=== PATIENT | female | born 1965 | race Caucasian/White ===

== ENCOUNTER 2018-06-13 10:55 | Emergency (ER) | payer BC, OTHER ==
[~2018-06-13] VITALS: Ht 152.4 cm; Wt 52.7 kg
[~2018-06-13 10:55] MED LIST: IBUP600T26 OR; LIAL1.2T PO; VICO5TAB PO; VICT18IN SC; aspirin PO; cardizem PO; lipitor PO; lisinopril PO; loperamide PO; metformin PO; trilipix PO
[2018-06-13] MEDS ORDERED: COZA100T2 PO (11:08)
[2018-06-13] MEDS ORDERED: FENO160T10 PO (11:08)
[2018-06-13] MEDS ORDERED: INVO300T PO (11:08)
[2018-06-13] MEDS ORDERED: VITA1CAP25 PO (11:08)
[2018-06-13] MEDS ORDERED: TRUL0.5I SC (11:08)
--- NOTE | 2018-06-13 13:25 | REP ---
Limited pelvic ultrasound including transabdominal and endovaginal imaging: The patient report as a tender to 3 mm nodule along the right posterior vaginal cuff on pelvic exam. The vaginal vault is evaluated with transabdominal and transvaginal ultrasound. By ultrasound. No nodule or mass is identified. Electronically Signed by Curt Rosas MD 06/13/2018 01:16 P
[2018-06-13 13:54] VITALS: BP 117/77
== END 2018-06-13 13:55 | disposition home or self-care (01) ==
LOC: M ED 10:55
DX: N89.8 Other specified noninflammatory disorders of vagina (principal); R10.2 Pelvic and perineal pain; E11.9 Type 2 diabetes mellitus without complications; I10 Essential (primary) hypertension; E78.5 Hyperlipidemia, unspecified; Z79.82 Long term (current) use of aspirin; Z79.899 Other long term (current) drug therapy; Z98.890 Other specified postprocedural states; Z87.59 Personal history of other complications of pregnancy, childbirth and the puerperium; Z88.0 Allergy status to penicillin; Z88.2 Allergy status to sulfonamides

== ENCOUNTER 2018-08-13 07:30 | Outpatient (CLI) | payer BC ==
[~2018-08-13] VITALS: Ht 152.4 cm; Wt 50.8 kg
[~2018-08-13 07:30] MED LIST changes: +ASPI81TA85 PO; +CARD120T4 PO; +COZA100T2 PO; +FENO160T10 PO; +INVO300T PO; +LIPI20TA PO; +LR 1,000 ML IV ONE; +TRUL0.5I SC; +VITA1CAP25 PO
[2018-08-13 07:44] LABS: HEMATOCRIT 48.7 % (36.0-47.0); HEMOGLOBIN 16.2 g/dl (12.0-15.5); MEAN CORPUSCULAR HEMOGLOBIN 30.3 pg (27.0-33.0); MEAN CORPUSCULAR HGB CONC 33.3 g/dl (32.0-36.5); PLATELET COUNT, AUTOMATED 300 10^3/uL (150-450); RED BLOOD COUNT 5.35 10^6/uL (4.00-5.40); WHITE BLOOD COUNT 6.5 10^3/uL (4.0-10.0)
[2018-08-13 08:06] LABS: BLOOD UREA NITROGEN 23 MG/DL (7-18); CALCIUM LEVEL 8.8 MG/DL (8.5-10.1); CARBON DIOXIDE LEVEL 30 MEQ/L (21-32); CHLORIDE LEVEL 105 MEQ/L (98-107); CREATININE FOR GFR 0.78 MG/DL (0.55-1.30); GLOMERULAR FILTRATION RATE > 60.0 (>51); GLUCOSE, FASTING 128 MG/DL (70-100); POTASSIUM SERUM 4.3 MEQ/L (3.5-5.1); SODIUM LEVEL 141 MEQ/L (136-145)
[2018-08-13] MEDS ORDERED: IBUP-1114 PO (08:26)
[2018-08-13] MEDS ORDERED: LIDOCAINE 2% INJ 100 MG/5 ML SDV (FOR ANES.) As Ordered ONE (08:28)
[2018-08-13] MEDS ORDERED: PROPOFOL 200 MG/20 ML VIAL As Ordered ONE (08:28)
[2018-08-13] MEDS ORDERED: fentaNYL 100 MCG/2 ML INJECTION (J3010) As Ordered ONE (08:29)
[2018-08-13] MEDS ORDERED: MIDAZOLAM INJ 2 MG/2 ML VIAL (J2250) As Ordered ONE (08:29)
[2018-08-13 08:46] VITALS: BP 103/65
--- NOTE | 2018-08-14 23:47 | ECGEPIP ---
Stationary ECG Study [facility] Test Date: 2018-08-13 Pat Name: WAQAR HAYES Department: Room: - Gender: F Grounds Manager: PADMAJA : 1965 Requested By: Rio Harry Order Number: [id number] Reading MD: Thanh Lozano Measurements Intervals [place] Rate: 60 P: 19 NV: 159 QRS: 54 QRSD: 89 T: 52 QT: 422 QTc: 424 Interpretive Statements SINUS RHYTHM MODERATE ST DEPRESSION. CONSIDER ISCHEMIA ARTIFACT ALSO NOTED NO PRIOR TRACING Electronically Signed On 08-14-2018 23:46:58 EDT by Thanh Lozano
[2018-09-08] MEDS ORDERED: FENO54TA14 PO (15:16)
== END 2018-08-13 10:43 | disposition home or self-care (01) ==
LOC: M SDC 07:30 → EDSTATUS 09:10 → M SDC 10:43
PROVIDERS: ATTEND Obstetrics & Gynecology
DX: R10.2 Pelvic and perineal pain (principal); Z53.09 Procedure and treatment not carried out because of other contraindication; R94.31 Abnormal electrocardiogram [ECG] [EKG]; Z88.0 Allergy status to penicillin; Z88.2 Allergy status to sulfonamides

== ENCOUNTER 2018-09-24 13:02 | Day surgery (SDC) | payer BC ==
[~2018-09-24] VITALS: Ht 152.4 cm; Wt 52.6 kg
[~2018-09-24 13:02] MED LIST changes: +FENO54TA14 PO; +IBUP-1114 PO
[2018-09-24] MEDS ORDERED: PROPOFOL 200 MG/20 ML VIAL As Ordered ONE (16:13)
[2018-09-24] MEDS ORDERED: fentaNYL 100 MCG/2 ML INJECTION (J3010) As Ordered ONE (16:13)
[2018-09-24] MEDS ORDERED: MIDAZOLAM INJ 2 MG/2 ML VIAL (J2250) As Ordered ONE (16:13)
[2018-09-24] MEDS ORDERED: LIDOCAINE 2% INJ 100 MG/5 ML SDV (FOR ANES.) As Ordered ONE (16:13)
[2018-09-24] MEDS ORDERED: BUPIVACAINE HCL 0.5% 30 ML VIAL As Ordered ONE (17:18)
[2018-09-24 19:15] VITALS: BP 127/88
--- NOTE | 2018-09-26 13:14 | RO ---
DATE OF PROCEDURE: 09/24/2018 PREOPERATIVE DIAGNOSIS: Dyspareunia, vaginal cuff pain with point tenderness detected in the office. POSTOPERATIVE DIAGNOSIS: Dyspareunia, vaginal cuff pain with point tenderness detected in the office. PROCEDURE: Vaginal cuff revision, partial and sterile water injection for trigger point pain. SURGEON: Dr. Nilda Henry [employer] GR[employer]ER: None. ANESTHESIA: Monitored anesthesia care (MAC) with local. DESCRIPTION OF PROCEDURE: Palak was brought to the operating room and carefully prepped and positioned without full sedation and certainly she has some discomfort, careful to be as cautious and thorough as possible without causing undue discomfort. Then, she was sedated but not fully, and we placed retractors, not the weighted, just the Brittanie, in anterior so we could see the cuff well. Then, using the back end of a pickup, we carefully pressed around the opening. She has some generalized introital discomfort and some tension. I think this is from having this level of discomfort for some time and strongly suspect that that is separate from the issue. Mid vagina did not have any point tenderness, and at the very, very cuff angles, she did not have the tenderness I expected. Just to the right of midline, she had a spot where she really jumped, and not so much on the left and not at the angles where I expected it, but very obviously at that site. So, we injected about 1 mL of Marcaine at that site, and then the patient stopped having vaginal cuff pain. As a result of this and of my agreement with the patient preoperatively, went ahead and opened about 2-1/2 cm area of the cuff there centered around that spot to revise the cuff there. She really felt that there was something behind it in her sensation, and had such significant discomfort that it seemed worse revising it to see if re-rolling the dice would result in a more comfortable healing. And having removed that sort of elliptical portion of tissues or ovoid, we then carefully reapproximated the cuff, and with the suture, we could really tell as the Marcaine wore off where that spot was. We then went ahead and injected her with sterile water in that location, and she was anesthetized for this part, but we made sure that we had already identified our site for injection, and, of course, carefully retracted to make sure we did not get any intravascular injection. Having injected and then reclosed the partial revision of the cuff, we ended the procedure. Estimated blood loss: Only about 5 mL. Fluid replacement was crystalloid. Complications: None. Condition and Disposition: Palak tolerated the procedure well considering how she had to have sensation for part of it and was recovering in the recovery room in good condition.
== END 2018-09-24 19:25 | disposition home or self-care (01) ==
LOC: M SDC 13:02
PROVIDERS: ATTEND Obstetrics & Gynecology
DX: N94.10 Unspecified dyspareunia (principal); R10.2 Pelvic and perineal pain; E11.9 Type 2 diabetes mellitus without complications; Z79.82 Long term (current) use of aspirin; I10 Essential (primary) hypertension; G43.909 Migraine, unspecified, not intractable, without status migrainosus; K58.8 Other irritable bowel syndrome; Z79.899 Other long term (current) drug therapy; Z88.0 Allergy status to penicillin; Z88.2 Allergy status to sulfonamides
CPT/HCPCS: 58999; 88304; J2250; J3010

== ENCOUNTER → 2019-06-30 | Outpatient (REF) | payer BC ==
[~2019-06-30] MED LIST changes: -LR 1,000 ML IV ONE
[2019-06-30 17:14] LABS: BASO # 0.1 10^3/uL (0.0-0.2); BASO % 0.7 % (0.0-1.0); EOS # 0.1 10^3/uL (0.0-0.5); EOS % 1.3 % (0.0-3.0); HEMATOCRIT 45.2 % (36.0-47.0); LYMPH # 2.3 10^3/uL (1.5-5.0); LYMPH % 26.3 % (24.0-44.0); MEAN CORPUSCULAR HEMOGLOBIN 29.3 pg (27.0-33.0); MEAN CORPUSCULAR HGB CONC 33.2 g/dl (32.0-36.5); MEAN CORPUSCULAR VOLUME 88.3 fl (80.0-96.0); MONO # 0.5 10^3/uL (0.0-0.8); MONO % 5.3 % (0.0-5.0); NEUTROPHILS # 5.7 10^3/uL (1.5-8.5); NEUTROPHILS % 66.2 % (36.0-66.0); PLATELET COUNT, AUTOMATED 307 10^3/uL (150-450); RED BLOOD COUNT 5.12 10^6/uL (4.00-5.40); WHITE BLOOD COUNT 8.6 10^3/uL (4.0-10.0)
[2019-06-30 17:43] LABS: ALBUMIN 3.8 GM/DL (3.2-5.2); ALT/SGPT 23 U/L (12-78); BILIRUBIN,TOTAL 0.3 MG/DL (0.2-1.0); BLOOD UREA NITROGEN 21 MG/DL (7-18); CALCIUM LEVEL 9.2 MG/DL (8.5-10.1); CARBON DIOXIDE LEVEL 27 MEQ/L (21-32); CHLORIDE LEVEL 102 MEQ/L (98-107); CREATININE FOR GFR 0.81 MG/DL (0.55-1.30); FREE T4 1.25 NG/DL (0.76-1.46); GLOMERULAR FILTRATION RATE > 60.0 (>51); GLUCOSE, FASTING 270 MG/DL (70-100); POTASSIUM SERUM 4.3 MEQ/L (3.5-5.1); RHEUMATOID FACTOR QUANT < 10.0 IU/ML (<15.0); SODIUM LEVEL 138 MEQ/L (136-145); TOTAL PROTEIN 7.5 GM/DL (6.4-8.2)
[2019-06-30 17:45] LABS: VITAMIN B12 LEVEL 522 PG/ML
[2019-06-30 18:05] LABS: ERYTHROCYTE SEDIMENTATION RATE 5 mm/hr (0-30)
== END ==
LOC: M LABNEURO 14:49
PROVIDERS: ATTEND Psychiatry & Neurology Neurology
DX: E07.9 Disorder of thyroid, unspecified (principal); R51 Headache

== ENCOUNTER 2020-04-05 14:05 | Day surgery (SDC) | payer BC ==
[~2020-04-05] VITALS: Ht 152.4 cm; Wt 56.4 kg
[~2020-04-05 14:05] MED LIST changes: -ASPI81TA85 PO; +ASPI81TA86 PO
[2020-04-05] MEDS ORDERED: VITA50005 PO (14:20)
[2020-04-05] MEDS ORDERED: TIZA2TA PO (14:20)
[2020-04-05] MEDS: NS 1,000 ML IV SCH ×2 (15:38→23:22)
[2020-04-05 15:41] LABS: HEMOGLOBIN 13.9 g/dl (12.0-15.5); MEAN CORPUSCULAR HEMOGLOBIN 28.9 pg (27.0-33.0); MEAN CORPUSCULAR HGB CONC 32.3 g/dl (32.0-36.5); MEAN CORPUSCULAR VOLUME 89.4 fl (80.0-96.0); PLATELET COUNT, AUTOMATED 280 10^3/uL (150-450); RED BLOOD COUNT 4.81 10^6/uL (4.00-5.40); WHITE BLOOD COUNT 9.5 10^3/uL (4.0-10.0)
[2020-04-05] MEDS ORDERED: FENO160T10 PO (16:09)
[2020-04-05] MEDS ORDERED: SIMV20TA22 PO (16:09)
[2020-04-05] MEDS ORDERED: ASPI81TA26 PO (16:09)
[2020-04-05 16:16] LABS: ALBUMIN 3.9 GM/DL (3.2-5.2); ALT/SGPT 21 U/L (12-78); BILIRUBIN,TOTAL 0.3 MG/DL (0.2-1.0); BLOOD UREA NITROGEN 21 MG/DL (7-18); CALCIUM LEVEL 9.3 MG/DL (8.5-10.1); CARBON DIOXIDE LEVEL 29 MEQ/L (21-32); CHLORIDE LEVEL 106 MEQ/L (98-107); GLOMERULAR FILTRATION RATE > 60.0 (>51); GLUCOSE, FASTING 172 MG/DL (70-100); POTASSIUM SERUM 4.2 MEQ/L (3.5-5.1); RSV AMPLIFICATION NEGATIVE (NEGATIVE); SODIUM LEVEL 139 MEQ/L (136-145); TOTAL PROTEIN 7.2 GM/DL (6.4-8.2)
[2020-04-05 18:15] VITALS: BP 138/87
[2020-04-05] MEDS ORDERED: KETOROLAC 60MG 2ML VIAL As Ordered ONE (18:56)
[2020-04-05] MEDS ORDERED: ACETAMINOPHEN 1000MG 100ML IV BTL (OFIRMEV) (J0131 PER 10MG) As Ordered ONE (18:56)
[2020-04-05] MEDS ORDERED: dexameTHASONE 4 MG/ML 1ML VIAL (J1100 PER 1MG) As Ordered ONE (18:56)
[2020-04-05] MEDS ORDERED: propofoL 200 MG/20 ML VIAL As Ordered ONE (18:56)
[2020-04-05] MEDS ORDERED: MIDAZOLAM INJ 2MG/2ML VIAL (J2250 PER 1MG) As Ordered ONE (18:56)
[2020-04-05] MEDS ORDERED: ONDANSETRON 4MG/2ML VIAL As Ordered ONE ×2 (18:56→20:19)
[2020-04-05] MEDS ORDERED: SUGAMMADEX SODIUM 500 MG/5 ML VIAL (BRIDION) As Ordered ONE (18:56)
[2020-04-05] MEDS ORDERED: ROCURONIUM BROMIDE 50 MG/5 ML VIAL As Ordered ONE (18:56)
[2020-04-05] MEDS ORDERED: LIDOCAINE 2% 100MG/5ML SDV (FOR ANES.) As Ordered ONE (18:56)
[2020-04-05] MEDS ORDERED: fentaNYL 100 MCG/2 ML INJECTION (J3010) As Ordered ONE ×2 (18:57→20:36)
--- NOTE | 2020-04-05 19:24 | HPE ---
HISTORY AND PHYSICAL DATE OF ADMISSION: 04/05/2020 CHIEF COMPLAINT: Right-sided pain. HISTORY OF PRESENT ILLNESS: The patient is a 54-year-old female who has had right-sided abdominal pains for a little over a week and a half. She presented to her primary in [place] and had an outpatient CT scan done today that showed a dilated thickened appendix. Her labs are normal, but the appendix was dilated and thickened, which is new as compared to a previous study that was associated with her pain. She was brought over her to the emergency room. On exam, she does have some slight tenderness there, no nausea or vomiting, no fevers or chills. She would prefer to have the appendix taken out rather than waiting and seeing if it improves on its own with antibiotics. PAST MEDICAL HISTORY: 1. Ulcerative colitis. 2. Hypertension. 3. Diabetes. PAST SURGICAL HISTORY: 1. Hysterectomy. 2. Cholecystectomy. 3. Tonsillectomy. 4. Tubal resection. ALLERGIES: PENICILLINS AND SULFA. MEDICATIONS: Please see the medical record. REVIEW OF SYSTEMS: Pertinent positives and negatives as stated in the HPI. PHYSICAL EXAMINATION: GENERAL: Alert and oriented x3. No acute distress. VITAL SIGNS: Temperature 98.2, pulse 86, respiratory rate 16, blood pressure 109/72, pulse oximetry 97% on room air. HEENT: Pupils equally round and reactive to light and accommodation. HEART: S1, S2, regular rate and rhythm. LUNGS: Clear to auscultation bilaterally. ABDOMEN: Soft, tender to palpation in the right mid abdomen, no rebound or guarding, no rigidity. EXTREMITIES: No clubbing, cyanosis, or edema. LABORATORY DATA: White count 9.5, hemoglobin 13.9, platelets 280, potassium 4.2, creatinine 0.8. COVID test is negative. IMAGING: CT abdomen and pelvis done outpatient showed the thickened and dilated appendix over 1.1 cm in diameter, suspicious for appendicitis. ASSESSMENT AND PLAN: The patient is a 54-year-old female with acute appendicitis. RECOMMENDATIONS: Proceed with laparoscopic removal. Risks and benefits of the procedure, not limited to, but including, bleeding, infection, hernia formation, damage to surrounding structures, and need for further surgery were discussed in detail with the patient. Informed consent was obtained and the procedure is planned. Postoperatively, if she does well, she will likely be discharged to home this evening and she will be able to follow up with me in the office in two weeks.
[2020-04-05] MEDS ORDERED: CIPROFLOXACIN/D5W 400 MG/200 ML BAG (J0744) As Ordered ONE (19:30)
[2020-04-05] MEDS ORDERED: BUPIVACAINE HCL 0.25% 30ML VIAL As Ordered ONE (19:30)
[2020-04-05] MEDS ORDERED: HYDR-3715 PO (20:16)
[2020-04-05] MEDS ORDERED: METOCLOPRAMIDE INJ 10MG/2ML VIAL (J2765 PER 1) As Ordered ONE (20:19)
[2020-04-05] MEDS ORDERED: METOCLOPRAMIDE INJ 10MG/2ML VIAL (J2765 PER 1) IV PRN (20:30)
[2020-04-05] MEDS ORDERED: LR 1,000 ML IV SCH (20:30)
[2020-04-05] MEDS ORDERED: oxyCODONE 5MG TAB PO PRN (20:30)
[2020-04-05] MEDS ORDERED: ONDANSETRON 4MG/2ML VIAL IV PRN (20:30)
[2020-04-05] MEDS: fentaNYL 100 MCG/2 ML INJECTION (J3010) IV PRN ×2 (20:38→20:43)
[2020-04-05] MEDS ORDERED: NORCO, ANEXSIA 5/325MG TABLET (HYDROcodone/ACETAMINOPHEN) PO PRN (20:45)
[2020-04-05 21:11] VITALS: BP 95/62
[2020-04-05 21:41] VITALS: BP 101/66
[2020-04-05 22:11] VITALS: BP 102/66
[2020-04-05 23:11] VITALS: BP 102/65
[2020-04-06 00:11] VITALS: BP 101/64
[2020-04-06 01:11] VITALS: BP 98/63
[2020-04-06 02:11] VITALS: BP 97/62
[2020-04-06 06:00] VITALS: BP 108/68
[2020-04-06] MEDS: NS 1,000 ML IV SCH (06:21)
[2020-04-06] MEDS ORDERED: NORCO, ANEXSIA 5/325MG TABLET (HYDROcodone/ACETAMINOPHEN) PO PRN ×3 (08:45→09:00)
--- NOTE | 2020-04-06 08:59 | RO ---
OPERATIVE NOTE DATE OF OPERATION: 04/05/2020 PREOPERATIVE DIAGNOSIS: Acute appendicitis. POSTOPERATIVE DIAGNOSIS: Acute appendicitis. PROCEDURE: Laparoscopic appendectomy. SURGEON: Curt Vital DO HUSBANDRY PERSON: None. ANESTHESIA: General. ESTIMATED BLOOD LOSS: 5 mL. COMPLICATIONS: None. INDICATIONS FOR PROCEDURE: The patient is 54-year-old female who presents with a one and a half week history of right mid abdominal pain. Found to have a dilated appendix on CT. Recommendation was to proceed with laparoscopic appendectomy. Risks and benefits of the procedure not limited to but including bleeding, infection, hernia formation, damage to surrounding structures, and need for further surgery were discussed in detail with the patient. Informed consent was obtained and procedure was planned. DESCRIPTION OF PROCEDURE: The patient brought back to the operating room 3. After sufficient sedation, the abdomen was sterilely prepped and draped. Next a time-out was done to confirm proper patient and proper procedure. Following that, a 5 mm incision was made in the right lower quadrant. Veress needle was inserted and the abdomen was insufflated to 15 mmHg. Next the Veress needle was removed and a 5 mm Optiview port was used to gain access to the abdomen. Once the abdomen was entered, an 8 mm port was placed supraumbilically in the midline and another 5 mm port suprapubically in the midline. The right lower quadrant was then examined. The appendix was identified and was normal at the base but around the mid appendix it was thickened and dilated. The appendix was elevated up. Mesoappendix was dissected using the Enseal until the base of the appendix was reached. The base was then ligated with two PDS endoloops and appendix was then amputated using the Enseal, placed inside a 5 mm Endo Catch bag and brought out through the umbilical port site. Once the appendix was removed, the fascia at the umbilical port site was closed with an 0-Vicryl figure of eight suture using a Zhou-Kunal needle. The abdomen was then desufflated. Skin incisions were closed with 4-0 Vicryl subcuticular sutures. The abdomen was cleaned and dried, 4 x 4 Steri-Strips were applied.
[2020-04-06 10:00] VITALS: BP 108/74
== END 2020-04-06 11:27 | disposition home or self-care (01) ==
LOC: M ED 14:05 → M SDC 14:06 → M MSPAV 18:11 → M SDC 04-06 11:27
PROVIDERS: ATTEND Surgery
DX: K35.80 Unspecified acute appendicitis (principal); K51.90 Ulcerative colitis, unspecified, without complications; I10 Essential (primary) hypertension; E11.9 Type 2 diabetes mellitus without complications; Z79.899 Other long term (current) drug therapy; Z90.710 Acquired absence of both cervix and uterus
CPT/HCPCS: 44970; 80053; 85027; 86850; 86900; 86901; 87631; 88304; 96374; 96375; 99284; G0378; J0131; J0744; J1100; J1885; J2250; J2405; J2765; J3010